=== PATIENT | male | born 1955 | race Caucasian/White ===

== ENCOUNTER 2016-12-11 22:32 | Emergency (ER) | payer BC, OTHER ==
[2016-12-11 22:37] VITALS: BP 121/89; PULSE 77; TEMP 97.6; BMI 27.8
--- NOTE | 2016-12-11 23:09 | PDOC ---
History of Present Illness - General Chief Complaint: Injury Stated Complaint: FALL/NOSE INJURY Time Seen by Provider: 12/11/16 22:35 - History of Present Illness Initial Comments: 12/11/16 22:58 The patient is a 61 yo m w/ no significant PMH who comes into the ED s/p fall 1 hr prior to presentation. Patient states that he got up to use the bathroom and tripped going up the stairs. He fell on his face, striking his nose. Patient had been drinking this evening and endorses having approximately 10 beers. Patient denies LOC, chest pain, palpitations, dizziness or headache. Past History - Past Medical History Allergies/Adverse Reactions: Allergies Allergy/AdvReac Type Severity Reaction Status Date / Time No Known Allergies Allergy Verified 12/11/16 22:35 Home Medications: Ambulatory Orders Ibuprofen [Motrin -] 400 mg PO Q6H #30 tablet 12/12/16 - Immunization History Immunization Up to Date: Yes - Suicide/Smoking/Psychosocial Hx Smoking History: Never smoked Have you smoked in the past 12 months: No Information on smoking cessation initiated: No Hx Alcohol Use: No Drug/Substance Use Hx: No Substance Use Type: Alcohol Review of Systems - Review of Systems HEENTM: Yes: Nose Bleeding. No: Eye Pain, Blurred Vision, Double Vision Respiratory: No: Cough, Shortness of Breath, SOB with Exertion Cardiac (ROS): No: Chest Pain, Palpitations, Syncope ABD/GI: No: Symptoms Reported Musculoskeletal: No: Symptoms Reported Neurological: No: Headache, Numbness, Paresthesia, Weakness *Physical Exam - Vital Signs Last Vital Signs Temp Pulse Resp BP Pulse Ox 97.6 F 77 18 121/89 97 12/11/16 22:36 12/11/16 22:36 12/11/16 22:36 12/11/16 22:36 12/11/16 22:36 - Physical Exam General Appearance: Yes: Disheveled, Alcohol on Breath, Intoxicated. No: Apparent Distress HEENT: positive: EOMI, CONNIE, Other (swelling and bleeding over the bridge of the nose. No tenderness to palpation. No septal hematoma visualized. ) Neck: positive: Trachea midline, Supple. negative: Tender Respiratory/Chest: positive: Normal Breath Sounds, Wheezing (expiratory wheezes b/l ). negative: Respiratory Distress, Accessory Muscle Use Cardiovascular: positive: Regular Rhythm, Regular Rate, S1, S2. 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 Patient has swelling, minor lacerations and abraisions over the bridge of his nose. No septal hematoma visualized. Patient is bleeding from the nose. Must rule out facial bone fracture or nasal fracture. Patient has AOB and is overtly intoxicated. -CT head and facial bones -will irrigate and clean lacerations -will monitor patient until he becomes sober to gauge full extent of injuries. 12/12/16 01:21 -Patient back from CT, will await results - 12/12/16 01:27 -CT shows Comminuted nasal bridge fracture. Will need ENT f/u -Patient ambulating now sober. Will d/c home w/ f/u. *DC/Admit/Observation/Transfer Diagnosis at time of Disposition: Fracture of nasal bone Qualifiers: Encounter type: initial encounter Fracture type: closed Qualified Code(s): S02.2XXA - Fracture of nasal bones, initial encounter for closed fracture; S02.2XXA - Fracture of nasal bones, initial encounter for closed fracture - Discharge Dispostion Disposition: HOME Condition at time of disposition: Improved Admit: No - Prescriptions Prescriptions: Ibuprofen [Motrin -] 400 mg PO Q6H #30 tablet - Referrals Referrals: Aki Soto MD [Staff Physician] - - Patient Instructions Printed Discharge Instructions: DI for Nose Fracture Additional Instructions: You have a nose fracture. You should follow up with an ear, nose and throat doctor within one week of going home. We are sending you home with some Motrin. Please take this medication as directed and only take it if you have pain. If you experience shortness of breath, chest pain, fever, chills or if any of your symptoms get worse, please call your doctor or return to the Emergency department.
--- NOTE | 2016-12-12 00:26 | PDOC ---
Attending Attestation - Resident Resident Name: LuceroJose Armando - ED Attending Attestation I have performed the following: I have examined & evaluated the patient, The case was reviewed & discussed with the resident, I agree w/resident's findings & plan, Exceptions are as noted - HPI HPI: 12/11/16 23:07 61 year old with past medical history of questionable HTN p/w mechanical fall. The patient had a few beers. He tripped and fell (never syncopized) and landed on his face. No LOC. Pt is AAOx3 and able to provide a history. Pt sustained left sided epistaxis and pain at the bridge of the nose and abrasion to the bridge of the nose. Last tetanus is last year. - Physicial Exam PE: 12/12/16 00:39 GENERAL: Alcohol on breath but AAOx3, NAD HEENT: No c-spine tenderness. Small abrasion to bridge of nose. No septal hematoma. Epistaxis resolved on my exam. - Medical Decision Making 12/12/16 00:40 Vital Signs Temp Pulse Resp BP Pulse Ox 97.6 F 77 18 121/89 97 12/11/16 22:36 12/11/16 22:36 12/11/16 22:36 12/11/16 22:36 12/11/16 22:36 Given the fall, will obtain a head CT and facial CT. Clean the face and apply bacitracin. Observe the patient until he yessi (though he is nearly sober) and then d/c home once stable if workup is unremarkable. 12/12/16 01:[address] with communited nasal fracture. Negative Head CT. Pt is sober and ambulatory. Scar precautions given. Follow up with ENT.
== END 2016-12-12 01:36 | disposition home or self-care (01) ==
LOC: JER 22:32
DX: S02.2XXA Fracture of nasal bones, initial encounter for closed fracture (principal); S01.21XA Laceration without foreign body of nose, initial encounter; W10.8XXA Fall (on) (from) other stairs and steps, initial encounter; Y93.89 Activity, other specified; Y92.018 Other place in single-family (private) house as the place of occurrence of the external cause; Y99.8 Other external cause status; F10.10 Alcohol abuse, uncomplicated
CPT/HCPCS: 70450-TC; 70486-TC; 99282-25